=== PATIENT | male | born 1955 | race Two or more races ===

== ENCOUNTER 2024-05-08 19:00 | Emergency (ER) | payer MEDICARE, MEDICAID, SELFPAY ==
[2024-05-08] VITALS (13 sets, daily range): BP systolic 192–215; BP diastolic 85–120; PULSE 77–107; RESP 8–18; TEMP 36.9; O2SAT 95–100; BMI 28.5
--- NOTE | 2024-05-08 19:22 | EDNOTE_ITS ---
ED General RME/HPI General Chief complaint: General Adult/Misc Complain Stated complaint: fistula/shunt bleeding Time Seen by Provider: 05/08/24 19:18 Arrival date/time: 05/08/24 19:00 CC: Bleeding from right upper arm dialysis shunt HPI patient was in his shower and knocked the scab off causing immediate bleeding. EMS applied compression dressing which remains in place, there is no active oozing or bleeding at this time there are some bloody stains on the dressing. Patient denies lightheadedness or dizziness. 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 Related Data Home Medications ?Medication ?Instructions ?Recorded ?Confirmed DORZOLAMIDE/TIMOLOL (COSOPT OP TUYET) 1 drp Both eyes BID ##0 03/13/15 08/07/20 brimonidine 0.15 % eye drops 1 drp Both eyes BID #10 mL 03/13/15 08/07/20 (Alphagan P) zolpidem 10 mg tablet (Ambien) 10 mg PO HS #0 tabs 03/13/15 08/07/20 insulin NPH-regular human 100 25 - 30 unit subcut BID 08/07/20 08/07/20 unit/mL (70-30) subcutaneous cartridge latanoprost 0.005 % eye drops 1 drp ophthalmic (eye) QDAY 08/07/20 08/07/20 simvastatin 20 mg tablet 20 mg PO QDAY 08/07/20 08/07/20 sucroferric oxyhydroxide 500 mg 500 mg TID 08/07/20 08/07/20 chewable tablet (Velphoro) vitamin B complex-vitamin C-folic 1 tab PO QDAY 08/07/20 08/07/20 acid 0.8 mg tablet (Kiley-Erlinda) Allergies Allergy/AdvReac Type Severity Reaction Status Date / Time cephalexin [From Keflex] Allergy Severe Rash Verified 03/25/22 14:37 Penicillins Allergy Severe ITCHY Verified 03/25/22 14:37 Review of Systems Review of Systems Narrative Review of Systems: GEN: No fever, no chills, no weight loss EYES: No discharge, no visual changes, no pain HEENT: No ear pain, no congestion, no sore throat PULM: No shortness of breath, no cough, no congestion CV: No chest pain, no dyspnea on exertion, no palpitations GI: No nausea, no vomiting, no diarrhea, no pain, no constipation : No frequency, no urgency, no dysuria MUSC/SKEL: No joint pain, no back pain SKIN: No rash PSYCH: No hallucinations, no depression HEME/LYMPH: No easy bleeding or bruising tendencies NEURO: No weakness, no headache Past Medical History Past Medical History CARDIAC: Positive Cardiac Disorders, Hypercholesterolemia and Hypertension; Negative Congestive Heart Failure RESPIRATORY: Negative Chronic Obstructive Pulmonary Disease (COPD) GENITOURINARY: Positive Renal Disease and Dialysis ENT: Positive Blind (legally blind) ENDOCRINE: Positive Diabetes Mellitus Type 2; Negative Diabetes Mellitus Type 1 HEMATOLOGIC: Positive Anemia OTHER HISTORY: Negative Blood Transfusions Surgical History SURGICAL: Positive Cardiac Surgery, Pacemaker and Amputation (right bka) Social History SMOKING STATUS: Never smoker SUBSTANCE USE: does not use ED Exam Narrative Physical exam: [General: Obese not in any acute distress Head normocephalic HEENT: Within acceptable limits Neck is supple nontender Chest equal chest rise nontender to palpation Respiratory: Clear to auscultation no wheezes crackles or rubs CV: Rate rhythm is regular no murmurs rubs or clicks Abdomen is distended secondary to body habitus soft nontender no masses positive bowel sounds all 4 quadrants Back: No CVA tenderness no spinous process tenderness from cervical spine thoracic and lumbar spine Skin: Pressure dressing on the right upper extremity at the dialysis shunt site unable to assess the thrill. Cap refill in the digits of that extremity are less than 2 seconds neurosensory intact otherwise skin is intact no petechiae rash induration ulceration or crepitus Extremities: Moving all extremity against resistance cap refill less than 2 seconds neurosensory intact Neuro: Awake alert oriented x3 Glascow coma 15 no focal deficits] Course Quality Measures none Orders Category Date Time Status Saline [Insert IV] NOW Care 05/08/24 22:43 Completed CBC Stat Lab 05/08/24 19:46 Completed PT [Prothrombin Time with INR] Stat Lab 05/08/24 19:46 Completed PTT [Partial Thromboplastin Time] Stat Lab 05/08/24 19:46 Completed Labetalol IV [Trandate IV] Med 05/08/24 22:43 Discontinued 10 mg IVP X1 ONE Labetalol IV [Trandate IV] Med 05/09/24 02:00 Discontinued 10 mg IVP X1 ONE Labetalol IV [Trandate IV] Med 05/09/24 16:55 Discontinued 20 mg IVP X1 ONE Tranexamic Acid 1,000 mg Ivpb [Tranexamic Acid Ivpb] Med 05/08/24 22:19 Discontinued 1,000 mg in 100 ml IV [id number] Tranexamic Acid Inj Med 05/08/24 22:29 Discontinued 1,000 mg .ROUTE .STK-MED ONE Tranexamic Acid Inj Med 05/08/24 22:39 Discontinued 1,000 mg TOP X1 ONE Late Tray Request Routine Oth 05/09/24 14:27 Active Vital Signs Vital signs: Vital Signs Temperature 98.4 F 05/08/24 19:40 Pulse Rate 77 05/08/24 19:40 Respiratory Rate 18 05/08/24 19:40 Blood Pressure 204/104 H 05/08/24 19:40 Pulse Oximetry (%) 100 05/08/24 19:40 Oxygen Delivery Method Room Air 05/08/24 19:[address] [facility] Patient data External records reviewed:: [facility] previous records and EMS form Clinical information provided by:: patient and EMS Social determinants that could affect healthcare access:: none Patient has the following chronic illnesses:: ESRD on dialysis Monday How is presenting disease/condition affected by chronic disease/condition?: u neffected by Evaluation data The following diagnostics were reviewed and interpreted by me:: lab results Lab and/or radiology exams considered but not ordered:: CBC shows no leukocytosis, stable anemia no thrombocytopenia Coags within acceptable limits. Interpretation Summary: Site was reassessed at 2100, again there was leaking from the yesterday's dialysis catheter site. Pressure dressing reapplied. Medications Medications considered but not ordered:: None Medication administrations:: Medication Administration History Discontinued Medications Tranexamic Acid (Tranexamic Acid Ivpb) 1,000 mg in 100 mls @ 200 mls/hr IV [id number] PRN PRN Reason: BLEEDING Labetalol HCl (Labetalol Inj 5 Mg/Ml Vial 20 Ml) 10 mg IVP X1 ONE Stop: 05/08/24 22:44 Last Admin: 05/08/24 22:54 Dose: 10 mg Documented By: Labetalol HCl (Labetalol Inj 5 Mg/Ml Vial 20 Ml) 10 mg IVP X1 ONE Stop: 05/09/24 02:01 Last Admin: 05/09/24 02:15 Dose: 10 mg Documented By: NELLIE Labetalol HCl (Labetalol Inj 5 Mg/Ml Vial 20 Ml) 20 mg IVP X1 ONE Stop: 05/09/24 16:56 Last Admin: 05/09/24 17:01 Dose: 20 mg Documented By: JELLY Tranexamic Acid (Tranexamic Acid Inj 1,000 Mg/10 Ml Vial) Confirm Administered Dose 1,000 mg .ROUTE .STK-MED ONE Stop: 05/08/24 22:30 Last Admin: 05/08/24 22:51 Dose: Not Given Documented By: Non-Admin Reason: Duplicate Medication on eMAR Tranexamic Acid (Tranexamic Acid Inj 1,000 Mg/10 Ml Vial) 1,000 mg TOP X1 ONE Stop: 05/08/24 22:40 Last Admin: 05/09/24 01:21 Dose: 1,000 mg Documented By: NELLIE Comments: BENOIT ALLEN RN None Consultations Consultation(s) initiated? (list below): No Diagnosis Differential Diagnosis ED Complaint MDM: Dialysis shunt bleed, anemia, electrolyte imbalances Most likely diagnosis given after review of the tests above:: Dialysis shunt bleeding Admission Indicated Admission indicated?: not indicated Explain why admission is indicated or not indicated:: Transfer Admission Request Was there a request for admission?: No Disposition Plan Disposition Plan: Transfer Medical Decision Making Differential Diagnosis Differential Diagnosis: Dialysis shunt bleed, anemia, electrolyte imbalances Lab Data 05/08/24 19:46 Labs: Lab Results 05/08/24 Range/Units 19:46 WBC 6.8 (3.8-10.6) Thou/mm3 RBC 4.84 (4.50-5.90) Miln/mm3 Hgb 13.1 L (13.5-16.0) g/dL Hct 37.2 L (41.0-53.0) % MCV 77 L (80-100) fL MCH 27.1 (25.0-35.0) pg MCHC 35.2 (31.0-37.0) g/dl RDW Std Deviation 49.1 H (35.1-43.9) fL Plt Count 218 (140-440) Thou/mm3 Neut % (Auto) 65 (37-80) % Lymph % (Auto) 16 (10-50) % [place] % (Auto) 12 (0-12) % Eos % (Auto) 6 (0-10) % Baso % (Auto) 1 (0-2.5) % Neut # (Auto) 4.5 (1.8-7.7) Thou/mm3 Lymph # (Auto) 1.1 (1.0-4.8) Thou/mm3 [place] # (Auto) 0.8 (0.0-0.8) Thou/mm3 Eos # (Auto) 0.4 (0.0-0.5) Thou/mm3 Baso # (Auto) 0.1 (0.0-0.2) Thou/mm3 Immature Gran # (Auto) 0.01 H (0.00-0.00) Thou/mm3 Absolute Nucleated RBC 0.00 (0.00-0.00) Thou/mm3 Immature Gran % 0 (0-0) % Nucleated RBC % 0 (0) /100 WBC PT 11.0 (9.0-12.2) Seconds INR 1.0 (0.9-1.3) APTT 23.0 (22.0-36.0) Seconds Discharge Plan Plan Patient Disposition: [facility] Pt Being Transferred to: [facility] Service Needed for Transfer: Vascular Surgery Patient condition on transfer: Stable and Benefits outweigh risks Prescriptions/Referrals Prescriptions/Med Rec: No Action zolpidem [Ambien] 10 MG tablet 10 mg PO HS Qty: 0 DORZOLAMIDE/TIMOLOL (COSOPT OP TUYET) 150 DROP/BTL drops 1 drp Both eyes BID Qty: 0 brimonidine [Alphagan P] 10 ML drops 1 drp Both eyes BID Qty: 10 Novolin 70/30 U-100 Insulin 100 unit/mL (70-30) Cartridge 25 - 30 unit SUBCUT BID latanoprost 0.005 % Drops 1 drp OPHTHALMIC (EYE) QDAY simvastatin 20 mg Tablet 20 mg PO QDAY Kiley-Erlinda 0.8 mg Tablet 1 tab PO QDAY Velphoro 500 mg Tablet,Chewable 500 mg TID Referrals: Isidra Torrez FNP [Primary Care Provider] - In 1 week Problem List Clinical Impression: Hemorrhage of arteriovenous fistula, ESRD (end stage renal disease), HTN (hypertension) Patient/Caregiver Discharge Instructions Print Language: Panamanian Stand Alone Forms: [facility]ina Award Info., Patient Portal Info Letter
[2024-05-08 20:01] LABS: Basophils # (Auto) 0.1 Thou/mm3 (0.0-0.2); Basophils % (Auto) 1 % (0-2.5); Eosinophils # (Auto) 0.4 Thou/mm3 (0.0-0.5); Eosinophils % (Auto) 6 % (0-10); Hematocrit 37.2 % (41.0-53.0); Hemoglobin 13.1 g/dL (13.5-16.0); Immature Granulocytes % (Auto) 0 % (0-0); Immature Granulocytes Auto 0.01 Thou/mm3 (0.00-0.00); Lymphocytes # (Auto) 1.1 Thou/mm3 (1.0-4.8); Lymphocytes % (Auto) 16 % (10-50); Mean Corpuscular HGB Conc 35.2 g/dl (31.0-37.0); Mean Corpuscular Hemoglobin 27.1 pg (25.0-35.0); Mean Corpuscular Volume 77 fL (80-100); Monocytes # (Auto) 0.8 Thou/mm3 (0.0-0.8); Monocytes % (Auto) 12 % (0-12); Neutrophils # (Auto) 4.5 Thou/mm3 (1.8-7.7); Neutrophils % (Auto) 65 % (37-80); Nucleated Red Blood Cell % 0 /100 WBC (0); Platelet Count 218 Thou/mm3 (140-440); RDW Standard Deviation 49.1 fL (35.1-43.9); Red Blood Count 4.84 Miln/mm3 (4.50-5.90); White Blood Count 6.8 Thou/mm3 (3.8-10.6)
[2024-05-08] MEDS: LABETALOL INJ 5 MG/ML VIAL 20 ML 10 MG IVP (22:54)
--- NOTE | 2024-05-08 23:02 | EDNOTE_ITS ---
Emergency Room Addendum Addendum Narrative: 2300: Care assumed from Jose Sexton NP. Past medical, surgical, social and family history reviewed. Vitals and home medications reviewed. Results and treatment plan discussed. I will assume the care of the patient at this time and will follow the patient, pending re-evaluation. Please refer to the emergency department record for history and examination from initial visit. Daughter states the patient gets his vascular access revised by Dr. Wu ([phone]) in [place] every 2 weeks. She states the patient was advised to start peritoneal dialysis the next time the patient had an episode of bleeding from his AV fistula site. He was last seen by Dr. Wu 2 weeks ago in his private office. Patient states his scab over his fistula came off while he was in the shower tonight and has been bleeding since. Patient denies any chest pain, dizziness, fevers or other complaints. 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 Mendoza and normally has dialysis M//, but had it on 05/07/24. On my initial examination, the area of the AV fistula site is bounding. There is no bright red blood on the gauze. Initial blood pressure was 220 systolically and went down to 170 after receiving labetolol. As of 109, patient is still bleeding to his AV fistula with an increased thrill. When I tried to remove the dressing, blood squirted to the door. Site is re-wrapped and bleeding is controlled. This is the 3rd time the dressing was changed tonight without any improvement. 0128: Spoke with Dr. Smith, vascular on-call from Dr. Wu's office, who states the patient needs to go to the facility where he usually goes to for his procedures. Daughter states Dr. Wu works out of [facility] and [facility]. 0157: Spoke with [facility]'s transfer center, who states Dr. Smith is on-call for vascular surgeon and they will present the case to him. Daughter is agreeable to go to [facility] if able. 0208: Spoke with Dr. Smith from vascular surgery at [facility]. Accepts the patient for transfer and states to send the patient to [facility]. Informed that [facility] does not have a bed available at this time and declined the patient for transfer. Currently pending callback from [facility]. 0533: Spoke with Dr. Oviedo, hospitalist at [facility], who accepts the patient for transfer. Critical Care Time: 45 minutes The high probability of sudden, clinically significant deterioration in the patient?s condition required the highest level of my preparedness to intervene urgently. The services I provided to this patient were to treat and/or prevent clinically significant deterioration. Services included the following: chart data review, reviewing nursing notes and/or old charts, documentation time, income tax consultant collaboration regarding findings and treatment options, medication orders and management, direct patient care, vital sign assessments and ordering, interpreting and reviewing diagnostic studies and lab tests. Aggregate critical care time includes only time during which I was engaged in work directly related to the patient?s care, as described above, whether at bedside or elsewhere in the Emergency Department. It did not include time spent performing other reported procedures or the services of residents, students, nurses or physician assistants.
[2024-05-09] VITALS (84 sets, daily range): BP systolic 146–226; BP diastolic 66–117; PULSE 70–86; RESP 0–22; TEMP 36.7–36.9; O2SAT 91–99
[2024-05-09] MEDS: TRANEXAMIC ACID INJ 1,000 MG/10 ML VIAL 1000 MG TOP (01:21)
[2024-05-09] MEDS: LABETALOL INJ 5 MG/ML VIAL 20 ML 10 MG IVP (02:15)
--- NOTE | 2024-05-09 02:54 | PC.NURSE ---
TRANSFER CENTER CALLED FOR REPORT ON PATIENT IN ORDER TO GET PLACEMENT.
--- NOTE | 2024-05-09 03:26 | PC.NURSE ---
SAYRA FROM THE [facility] CALLED AND THEY ARE DECLINING THE PT AT THIS TIME DUE TO CAPACITY.
--- NOTE | 2024-05-09 05:50 | PC.NURSE ---
0152 [facility] COMTACTED PKT SENT. DR LESTER WANTS PT TO GO TO [facility] SO PT DECLINED AT [facility]. 0239 [facility] CONTACTED PT PKT SENT. [facility] DECLINED DUE TO CAPACITY. 0500 [facility] CALLED ONCE AGAIN. 0562 [facility] ACCEPT[facility] PT. DR GRACE. WE ARE NOW AWAITING BED ASSIGNMENT.
--- NOTE | 2024-05-09 08:21 | PC.CM ---
Addendum entered by Aleksandra Arroyo RN 05/09/24 16:43: network control operators supervisor time set for 1810. Ambulance will come sooner if they have a unit available. I updated Guilherme and Kimberlee in the ED. Addendum entered by Aleksandra Arroyo RN 05/09/24 15:14: I received a call from Chuck at [facility] and she states patient has been accepted to bed 3125 at [facility]. Address [address] [place] [address]. the number to call and give report [phone]. Addendum entered by Aleksandra Arroyo RN 05/09/24 14:23: 1350 I called [facility] to follow up on transfer. Chuck states they have been very busy and their discharges have been delayed. She states they have patient down for a med/surg bed. Chuck is aware patient is still in our ED. I spoke to the bedside nurse and I gave her an update. Nurse states patient is hungry wanted to know what was happening with the transfer. I asked nurse to speak to the doctor. If patient is stable maybe he can follow up with is established doctor in [place]. Original Note: [id number] I called [facility] and I spoke to transfer nurse Nathalia. She states patient has been accepted by Dr. Cordon and we are pending an open bed. I spoke to Lola and she states transfer form has been started but she does not see that a packet or CD was made. I will get packet together.
--- NOTE | 2024-05-09 15:09 | PC.NURSE ---
Transfer nurse informed that pt's fistula is still bleeding and pt still require transfer.
[2024-05-09] MEDS: LABETALOL INJ 5 MG/ML VIAL 20 ML 20 MG IVP (17:01)
--- NOTE | 2024-05-09 17:06 | PC.NURSE ---
Received report from Meghan RYAN and assumed care of patient.
--- NOTE | 2024-05-09 19:20 | PC.NURSE ---
REPORT GIVEN TO SOFI- BUSINESS LIBRARIAN. PATIENT TO BE TRANSFERRED TO [facility] IN [place]. NO DISTRESS NOTED AT TRANSFER.
== END 2024-05-09 19:10 | disposition short-term general hospital (02) ==
PROVIDERS: Registered Nurse General Practice; Emergency Provider Emergency Medicine; PCP Nurse Practitioner Family
DX: T82.838A Hemorrhage due to vascular prosthetic devices, implants and grafts, initial encounter (principal); I12.0 Hypertensive chronic kidney disease with stage 5 chronic kidney disease or end stage renal disease; E11.22 Type 2 diabetes mellitus with diabetic chronic kidney disease; N18.6 End stage renal disease; Z79.4 Long term (current) use of insulin; Y84.8 Other medical procedures as the cause of abnormal reaction of the patient, or of later complication, without mention of misadventure at the time of the procedure
CPT/HCPCS: 36415; 85025; 85610; 85730; 96374; 96376; 99291; J3490; J1920

== ENCOUNTER 2024-07-07 01:11 | Emergency (ER) | payer MEDICARE, MEDICAID, SELFPAY ==
[2024-07-07] VITALS (41 sets, daily range): BP systolic 124–166; BP diastolic 62–100; PULSE 74–105; RESP 16–88; TEMP 36.3–37.7; O2SAT 74–100; BMI 28.3
--- NOTE | 2024-07-07 01:14 | EKG_ITS ---
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
--- NOTE | 2024-07-07 01:50 | XR_ITS ---
Examination: AP chest single view Technique one AP portable upright chest single view Exam date and time: July 07, 2024 0204 hrs. Indications: Chest pain today. Findings: Early heart failure Mild enlargement cardiac contour Prominent vascular congestion Early perihilar edema Cardiac leads satisfactory position Impression: Early heart failure
[2024-07-07 02:31] LABS: Basophils # (Auto) 0.1 Thou/mm3 (0.0-0.2); Basophils % (Auto) 1 % (0-2.5); Eosinophils # (Auto) 0.2 Thou/mm3 (0.0-0.5); Eosinophils % (Auto) 1 % (0-10); Hematocrit 24.1 % (41.0-53.0); Immature Granulocytes % (Auto) 1 % (0-0); Immature Granulocytes Auto 0.13 Thou/mm3 (0.00-0.00); Lymphocytes # (Auto) 0.9 Thou/mm3 (1.0-4.8); Lymphocytes % (Auto) 6 % (10-50); Mean Corpuscular Hemoglobin 26.1 pg (25.0-35.0); Mean Corpuscular Volume 77 fL (80-100); Monocytes % (Auto) 7 % (0-12); Neutrophils # (Auto) 12.9 Thou/mm3 (1.8-7.7); Neutrophils % (Auto) 85 % (37-80); Nucleated Red Blood Cell # 0.04 Thou/mm3 (0.00-0.00); Nucleated Red Blood Cell % 0 /100 WBC (0); Platelet Count 483 Thou/mm3 (140-440); RDW Standard Deviation 53.5 fL (35.1-43.9); Red Blood Count 3.14 Miln/mm3 (4.50-5.90); White Blood Count 15.3 Thou/mm3 (3.8-10.6)
[2024-07-07 02:34] LABS: Hemoglobin 8.2 g/dL (13.5-16.0)
[2024-07-07 03:17] LABS: Alanine Aminotransferase 13 U/L (10-49); Albumin/Globulin Ratio 1.1 (1.2-2.2); Alkaline Phosphatase 214 U/L (46-116); Anion Gap 12 (7-16); Aspartate Amino Transferase 17 U/L (0-34); B-Type Natriuretic Peptide 733 pg/mL (0-100); BUN/Creatinine Ratio 8 Ratio (12-20); Bilirubin,Total 0.2 mg/dL (0.3-1.2); Blood Urea Nitrogen 63 mg/dL (9-23); Calcium 8.7 mg/dL (8.3-10.6); Calcium (Corrected) 8.7 mg/dL (8.5-10.1); Carbon Dioxide 28.4 mMol/L (20.0-31.0); Chloride 94 mMol/L (98-107); Creatinine (Component) 7.6 mg/dL (0.6-1.3); Estimated Creatinine Clearance 9.7 mL/min (>60); Globulin 3.5 gm/dL (2.3-3.5); Glucose 182 mg/dL (74-106); Lipase 26 U/L (12-53); Magnesium 2.2 mg/dL (1.6-2.6); Osmolality,Calculated 291 (275-295); Potassium 4.3 mMol/L (3.4-5.1); Sodium 134 mMol/L (136-145); Total Protein 7.5 gm/dL (5.7-8.2); Troponin I 0.044 ng/mL (0.0-0.045); eGFR 7 See Note
--- NOTE | 2024-07-07 03:23 | XR_ITS ---
Examination: CT chest with intravenous contrast 2-D sagittal and coronal reconstructions Exam date and time: July 07, 2024 at 0446 hrs. Indications: Chest pain radiating to left arm, a graft surgery one month ago just cellulitis redness swelling and pain beginning 3 days ago CTDI:vol (mGy) 29.9 DLP: (mGycm) 1098 Technique: Multiple axial sections of the thorax have been obtained. Sections have been obtained, 3 mm slice thickness. Mediastinal and lung density settings have been obtained. Intravenous contrast administered, 60 cc Isovue-370. 2-D sagittal, coronal images obtained. Low dose protocols were performed. One or more of the following dose reduction techniques were used; automated exposure control, adjustment of the mA and/or KV according to patient size, use of iterative reconstruction technique. Findings: Thick-walled abscess collection in the soft tissue right chest, at least 6 x 7 cm with reactive right axillary lymph nodes Thoracic aortic calcification no aneurysmal dilatation No pulmonary artery emboli on this non-CTA study Enlarged cardiac contour prominent vascular congestion with pulmonary edema and small bilateral pleural effusions No visualized liver or splenic lesion No pancreatic mass No gallstones Atrophic kidneys Impression: Thick-walled soft tissue abscess collection in the right chest at the 6 x 7 cm Heart failure pattern
--- NOTE | 2024-07-07 03:29 | PD.EDCHEST ---
ED Chest Pain RME/HPI General Chief Complaint: Chest Pain Stated Complaint: CHEST PAIN AND LEFT ARM PAIN Time Seen by Provider: 07/07/24 01:35 RME / HPI RME / HPI narrative: DR. SUKHDEV PIPER ED EVALUATION: 68-year-old male with history of DM2, CAD, hypertension, end-stage renal disease on dialysis (M, W, F) who presents to the emergency department with family with chest pain. Apparently about a month ago the patient's right upper extremity dialysis fistula became thrombosed. There was a surgeon at [place] [facility] who did some kind of surgery involving an incision in the right chest. The daughter states this was an AV graft of some kind. Apparently there was a post surgical superficial infection there but on subsequent follow-up appointments the surgeon said he was just going to follow it or watch it. Patient developed generalized chest pain with left upper extremity tingling about 7 hours ago or so. Patient with cardiac history. He denies diaphoresis, nausea, vomiting, dyspnea. Related Data Home Medications ?Medication ?Instructions ?Recorded ?Confirmed DORZOLAMIDE/TIMOLOL (COSOPT OP TUYET) 1 drp Both eyes BID ##0 03/13/15 08/07/20 brimonidine 0.15 % eye drops 1 drp Both eyes BID #10 mL 03/13/15 08/07/20 (Alphagan P) zolpidem 10 mg tablet (Ambien) 10 mg PO HS #0 tabs 03/13/15 08/07/20 insulin NPH-regular human 100 25 - 30 unit subcut BID 08/07/20 08/07/20 unit/mL (70-30) subcutaneous cartridge latanoprost 0.005 % eye drops 1 drp ophthalmic (eye) QDAY 08/07/20 08/07/20 simvastatin 20 mg tablet 20 mg PO QDAY 08/07/20 08/07/20 sucroferric oxyhydroxide 500 mg 500 mg TID 08/07/20 08/07/20 chewable tablet (Velphoro) vitamin B complex-vitamin C-folic 1 tab PO QDAY 08/07/20 08/07/20 acid 0.8 mg tablet (Kiley-Erlinda) Allergies Allergy/AdvReac Type Severity Reaction Status Date / Time cephalexin (From Keflex) Allergy Severe Rash Verified 03/25/22 14:37 Penicillins Allergy Severe ITCHY Verified 03/25/22 14:37 Review of Systems Review of Systems Systems Reviewed: All systems reviewed, normal except as documented Narrative Review of Systems: GEN: No fever, no chills, no weight loss EYES: No discharge, no visual changes, no pain HEENT: No ear pain, no congestion, no sore throat PULM: No shortness of breath, no cough, no congestion CV: + chest pain, no dyspnea on exertion, no palpitations GI: No nausea, no vomiting, no diarrhea, no pain, no constipation : No frequency, no urgency and no dysuria MUSC/SKEL: No joint pain, no back pain SKIN: No rash PSYCH: No hallucinations, no depression HEME/LYMPH: No easy bleeding or bruising tendencies NEURO: No weakness, no headache Past Medical History Past Medical History CARDIAC: Positive Cardiac Disorders (Pacemaker on left side), Hypercholesterolemia and Hypertension; Negative Congestive Heart Failure RESPIRATORY: Negative Chronic Obstructive Pulmonary Disease (COPD) or Asthma GENITOURINARY: Positive Renal Disease and Dialysis ENT: Positive Blind ENDOCRINE: Positive Diabetes Mellitus Type 2; Negative Diabetes Mellitus Type 1 HEMATOLOGIC: Positive Anemia; Negative Sickle Cell Disease OTHER HISTORY: Negative Blood Transfusions Surgical History SURGICAL: Positive Cardiac Surgery, Pacemaker and Amputation Social History SMOKING STATUS: Never smoker SUBSTANCE USE: does not use ALCOHOL: Never ED Exam Narrative Physical exam: GENERAL APPEARANCE:? alert and oriented, well-developed, well-nourished HEENT: Normocephalic, atraumatic; pupils equal, round, reactive to light; EOMI; mucous membranes pink, moist; oropharynx clear NECK: Supple CHEST: There is a right upper chest, 10 cm enlarged, erythematous, hot to touch and tender area with overlying well-healed surgical incision. There is some fluctuance there. Patient has erythema to the pectoral muscle and right chest generally. This is tender to palpation and hot to touch. LUNGS: CTABL; no wheezes, no rales, no rhonchi HEART: Regular rate, regular rhythm; normal S1, S2; no murmurs ABDOMEN: non distended; normal BS;? soft, no tenderness, no guarding, no rebound; no masses, no organomegaly, no hernia?? : Patient has a left groin temporary dialysis catheter. BACK:? no CVA tenderness EXTREMITIES:? Patient has a hard right upper extremity AV graft with no thrill or pulse. Patient is able to move all 4 extremities well, with full ROM and good CSM. NEUROLOGIC: awake; alert and oriented x4; cranial nerves II-XII grossly intact; no focal sensory or motor deficits PSYCHIATRIC:? appropriate mood and affect SKIN: warm, dry, normal color; no rashes Course Course Course Narrative: 0600: Patient was signed out to Dr. Potter. Past medical, surgical, social and family history reviewed. Vitals and home medications reviewed. Results and treatment plan discussed. They will assume the care of the patient at this time and will follow the patient. Quality Measures none Orders Category Date Time Status CT Screening NOW Care 07/07/24 03:23 Active Hardware Trainer STAT Care 07/07/24 01:50 Active Continuous Pulse Oximetry ONCE Care 07/07/24 01:50 Completed Dialysis [Hemodialysis] Urgent Care 07/07/24 15:59 Active EKG (ED ONLY) *Do not use* NOW Care 07/07/24 01:14 Completed Insert IV STAT Care 07/07/24 01:50 Active NPO STAT Care 07/07/24 03:18 Active Strict Intake and Output Routine Care 07/07/24 03:18 Ordered Referral - [employer] Fabricator Trimmer Stat Cons 07/07/24 07:[address] chest w con Stat Exams 07/07/24 03:[address] chest wo con Stat Exams 07/07/24 14:43 Completed EKG (ED Only) Stat Exams 07/07/24 01:14 Ordered XR chest 1V Stat Exams 07/07/24 10:57 Completed XR chest 1V portable Stat Exams 07/07/24 01:50 Completed B-Type Natriuretic Peptide Stat Lab 07/07/24 02:04 Completed B-Type Natriuretic Peptide Stat Lab 07/07/24 03:34 Completed Blood Culture (Lab) Stat Lab 07/07/24 00:34 Received CBC Stat Lab 07/07/24 02:04 Completed CBC Stat Lab 07/07/24 15:15 Completed CMP [Comprehensive Metabolic Panel] Stat Lab 07/07/24 15:15 Completed Comprehensive Metabolic Panel Stat Lab 07/07/24 02:04 Completed Hepatitis Acute Panel Urgent Lab 07/07/24 15:18 Completed Hepatitis B Surface Ab Urgent Lab 07/07/24 15:18 Completed LDH (Lactate Dehydrogenase) Stat Lab 07/07/24 03:34 Completed Lactate (Lactic Acid) Stat Lab 07/07/24 03:34 Completed Lipase Stat Lab 07/07/24 02:04 Completed Magnesium Stat Lab 07/07/24 02:04 Completed Partial Thromboplastin Time Stat Lab 07/07/24 03:34 Completed Phosphorous Stat Lab 07/07/24 03:34 Completed Procalcitonin Stat Lab 07/07/24 03:34 Completed Prothrombin Time with INR Stat Lab 07/07/24 03:34 Completed Troponin I Stat Lab 07/07/24 02:04 Completed Troponin I Stat Lab 07/07/24 04:53 Completed Urinalysis Stat Lab 07/07/24 03:18 Ordered Urine Culture Stat Lab 07/07/24 03:18 Ordered Wound Culture and Gram Stain Stat Lab 07/07/24 15:51 Ordered ALBUTEROL RT 0.5ml [Proventil Rt 0.5ml] Med 07/07/24 10:45 Discontinued 10 mg INH X1 ONE ALBUTEROL RT 0.5ml [Proventil Rt 0.5ml] Med 07/07/24 14:24 Discontinued 2.5 mg INH X1 ONE Albumin Human 25% Ivpb [Albuminar-25 Ivpb] Med 07/07/24 15:59 Active 25 gm in 100 ml IV PRN Aztreonam Inj [Azactam Inj] 1,000 mg Med 07/07/24 03:28 Discontinued SODIUM CHLORIDE 0.9% (Popper) [NS 0.9% (Popper)] 50 ml IV X1 Clindamycin/Ns 600 mg Ivpb [Cleocin/Ns Ivpb] Med 07/07/24 03:28 Discontinued 600 mg in 50 ml IV X1 Heparin* 1000 UNITS/ML- 10 ML [Heparin 1000 UNITS/ML- Med 07/07/24 16:41 Active 10 ML] 6,300 unit INDWELLCAT PRN PRN Ipratropium [place] Rt Tuyet [Atrovent Rt Tuyet] Med 07/07/24 10:45 Discontinued 1 mg INH X1 ONE MethylPREDNISolone.* [SoluMEDROL Inj] Med 07/07/24 10:45 Discontinued 125 mg IVP X1 ONE Sodium Chloride Rt Tuyet 0.9% [NS Rt Tuyet 0.9%] Med 07/07/24 10:45 Active 3 ml INH PRN PRN Sodium Chloride Rt Tuyet 0.9% [NS Rt Tuyet 0.9%] Med 07/07/24 14:24 Active 3 ml INH PRN PRN Vital Signs Vital signs: Vital Signs Temperature 99.0 F 07/07/24 01:51 Pulse Rate 86 07/07/24 01:51 Respiratory Rate 20 07/07/24 01:51 Blood Pressure 137/70 H 07/07/24 01:51 Pulse Oximetry (%) 89 L 07/07/24 01:51 Oxygen Delivery Method Room Air 07/07/24 01:51 Chest Pain MDM Narrative [facility] Narrative:: 03:29 patient's chief complaint is chest pain. A month ago the patient's right upper extremity dialysis fistula became thrombosed. There was a surgeon at [place] [facility] who did some kind of surgery involving an incision in the right chest. The daughter states this was an AV graft of some kind. Apparently there was a post surgical superficial infection there but on subsequent follow-up appointments the surgeon said he was just cannot follow it or watch it. I have ordered a chest pain as well as a sepsis workup. This is obviously infection. Patient is allergic to penicillin and is currently taking ciprofloxacin prescribed by his doctor. Apparently they called the doc and told him that he had chills and sweats then the doctor just prescribed ciprofloxacin. Patient's QTc is 424 on chest x-ray here in the emergency department. I have ordered aztreonam and clindamycin. This is obviously infection. I have ordered a CT of the chest as well. Will need to get some labs back and then the plan is to call [place] [facility] and speak with The surgeon covering that surgeon about transferring him. care of the pt turned over to Dr Claudio at 6am pending CT Patient data External records reviewed:: [facility] previous records (Reviewed last ED visit dated 03/25/22, discharged with the following: Hemorrhage) Clinical information provided by:: patient and family Social determinants that could affect healthcare access:: none Patient has the following chronic illnesses:: DM2, CAD, hypertension, end-stage renal disease on dialysis (M, W, F). How is presenting disease/condition affected by chronic disease/condition?: exacerbated by Evaluation data The following diagnostics were reviewed and interpreted by me:: lab results and radiology exam(s) Lab and/or radiology exams considered but not ordered:: none Interpretation Summary: See above under MDM narrative. RADIOLOGY Procedure(s): XR chest 1V portable Accession Number(s): [id number] cc: John Acevedo MD; Naga Varma MD; Yoni Godwin MD~ Examination: AP chest single view Technique one AP portable upright chest single view Exam date and time: July 07, 2024 0204 hrs. Indications: Chest pain today. Findings: Early heart failure Mild enlargement cardiac contour Prominent vascular congestion Early perihilar edema Cardiac leads satisfactory position Impression: Early heart failure Dictated By: Naga Varma MD Procedure(s): CT chest w con Accession Number(s): [id number] cc: John Acevedo MD; Naga Varma MD; Yoni Godwin MD~ Examination: CT chest with intravenous contrast 2-D sagittal and coronal reconstructions Exam date and time: July 07, 2024 at 0446 hrs. Indications: Chest pain radiating to left arm, a graft surgery one month ago just cellulitis redness swelling and pain beginning 3 days ago CTDI:vol (mGy) 29.9 DLP: (mGycm) 1098 Technique: Multiple axial sections of the thorax have been obtained. Sections have been obtained, 3 mm slice thickness. Mediastinal and lung density settings have been obtained. Intravenous contrast administered, 60 cc Isovue-370. 2-D sagittal, coronal images obtained. Low dose protocols were performed. One or more of the following dose reduction techniques were used; automated exposure control, adjustment of the mA and/or KV according to patient size, use of iterative reconstruction technique. Findings: Thick-walled abscess collection in the soft tissue right chest, at least 6 x 7 cm with reactive right axillary lymph nodes Thoracic aortic calcification no aneurysmal dilatation No pulmonary artery emboli on this non-CTA study Enlarged cardiac contour prominent vascular congestion with pulmonary edema and small bilateral pleural effusions No visualized liver or splenic lesion No pancreatic mass No gallstones Atrophic kidneys Impression: Thick-walled soft tissue abscess collection in the right chest at the 6 x 7 cm Heart failure pattern Dictated By: Naga Varma MD Medications / Prescriptions Medications or Prescriptions considered but not ordered:: none Medication administrations:: Medication Administration History Heparin Sodium (Porcine) (Heparin Sod Inj 1000 Unit/Ml Vial 10 Ml) 6,300 unit INDWELLCAT PRN PRN PRN Reason: DIALYSIS Stop: 07/21/24 16:40 Last Admin: 07/07/24 19:52 Dose: 6,300 unit Documented By: MM Co-signed By: ERIN Albumin Human (Albuminar-25 Ivpb) 25 gm in 100 mls @ 100 mls/min IV PRN PRN PRN Reason: DIALYSIS Sodium Chloride (Sodium Chloride Rt Tuyet 0.9% 3 Ml Nebu) 3 ml INH PRN PRN PRN Reason: SOLN Stop: 08/06/24 10:44 Last Admin: 07/07/24 10:54 Dose: 3 ml Documented By: RAMYA Comments: ADMINISTERED BY RT Sodium Chloride (Sodium Chloride Rt Tuyet 0.9% 3 Ml Nebu) 3 ml INH PRN PRN PRN Reason: SOLN Stop: 08/06/24 14:23 Last Admin: 07/07/24 14:38 Dose: 3 ml Documented By: ROSANNA Discontinued Medications Albuterol (Albuterol Rt 2.5 Mg/0.5 Ml Nebu) 10 mg INH X1 ONE Stop: 07/07/24 10:46 Last Admin: 07/07/24 10:54 Dose: 10 mg Documented By: TM Comments: ADMINISTERED BY RT Albuterol (Albuterol Rt 2.5 Mg/0.5 Ml Nebu) 2.5 mg INH X1 ONE Stop: 07/07/24 14:25 Last Admin: 07/07/24 14:37 Dose: 2.5 mg Documented By: ROSANNA Aztreonam 1,000 mg/ Sodium (Chloride) 50 mls @ 100 mls/hr IV X1 ONE Stop: 07/07/24 03:57 Last Infusion: 07/07/24 04:40 Dose: Infused Documented By: Admin: 07/07/24 04:08 Dose: 100 mls/hr Documented By: ERIN Clindamycin/Sodium Chloride (Cleocin/Ns Ivpb) 600 mg in 50 mls @ 100 mls/hr IV X1 ONE Stop: 07/07/24 03:57 Last Infusion: 07/07/24 04:08 Dose: Infused Documented By: Admin: 07/07/24 03:38 Dose: 100 mls/hr Documented By: ERIN Ipratropium [place] (Ipratropium Rt 0.5 Mg/ 2.5 Ml Nebu) 1 mg INH X1 ONE Stop: 07/07/24 10:46 Last Admin: 07/07/24 10:54 Dose: 1 mg Documented By: RAMYA Comments: ADMINISTERED BY RT Methylprednisolone Sodium Succinate (Methylprednisolone Sod Succ 62.5 Mg/Ml 2ml Vial) 125 mg IVP X1 ONE Stop: 07/07/24 10:46 Last Admin: 07/07/24 10:49 Dose: 125 mg Documented By: RAMYA see above Consultations Consultation(s) initiated? (list below): No Diagnosis Chest Pain Differential Diagnosis: atypical chest pain, costochondritis, chest pain and other (tenosis at the arterial inflow or venous outflow site) Most likely diagnosis given after review of the tests above:: No official diagnoses at this time, still pending diagnostic tests. Patient signout to the morning shift provider. Admission Indicated Admission indicated?: not indicated Explain why admission is indicated or not indicated:: No final disposition plan at this time, still pending diagnostic tests. Patient signout to the morning shift provider. Admission Request Was there a request for admission?: No Disposition Plan Disposition Plan: other (specify) (Patient signout to the morning shift provider.) Discharge Plan Prescriptions/Referrals Prescriptions/Med Rec: No Action zolpidem [Ambien] 10 MG tablet 10 mg PO HS Qty: 0 DORZOLAMIDE/TIMOLOL (COSOPT OP TUYET) 150 DROP/BTL drops 1 drp Both eyes BID Qty: 0 brimonidine [Alphagan P] 10 ML drops 1 drp Both eyes BID Qty: 10 Novolin 70/30 U-100 Insulin 100 unit/mL (70-30) Cartridge 25 - 30 unit SUBCUT BID latanoprost 0.005 % Drops 1 drp OPHTHALMIC (EYE) QDAY simvastatin 20 mg Tablet 20 mg PO QDAY Kiley-Erlinda 0.8 mg Tablet 1 tab PO QDAY Velphoro 500 mg Tablet,Chewable 500 mg TID Referrals: John Acevedo MD [Primary Care Provider] - In 1 week Problem List Clinical Impression: Post-operative wound abscess, Chest pain Patient/Caregiver Discharge Instructions Print Language: Indonesian
[2024-07-07] MEDS: CLINDAMYCIN/NS 600 MG IVPB 600 MG/50 ML BAG 100 MG IV (03:38)
[2024-07-07 03:40] LABS: Lactate (Lactic Acid) 0.8 mMol/L (0.4-2.0)
[2024-07-07 04:03] LABS: INR 1.2 (0.9-1.3); Partial Thromboplastin Time 26.6 Seconds (22.0-36.0); Prothrombin Time 12.7 Seconds (9.0-12.2)
[2024-07-07] MEDS: AZTREONAM IV (04:08)
[2024-07-07] MEDS: SODIUM CHLORIDE 0.9% IV (04:08)
[2024-07-07 04:13] LABS: Phosphorous 3.1 mg/dL (2.4-5.1)
[2024-07-07 04:28] LABS: B-Type Natriuretic Peptide 743 pg/mL (0-100); Procalcitonin 0.79 ng/ml (0.0-0.49)
[2024-07-07 05:32] LABS: Troponin I 0.045 ng/mL (0.0-0.045)
--- NOTE | 2024-07-07 05:55 | PRELIM_ITS ---
CT scan of the chest with intravenous contrast (axial sections with sagittal and coronal reformats) July 07, 2024 0446 hours Clinical History: post surgical cellulitis. Collection? Comparison:No prior study is available for comparison. Findings: There are ground-glass opacities and interstitial septal thickening in the lungs consistent with interstitial pulmonary edema. There are small bilateral pleural effusions. No evidence of pneumothorax.The mediastinum demonstrates no evidence of mass or lymphadenopathy. The thoracic aorta is unremarkable. There is no pericardial effusion. Coronary artery calcification is absent. Degenerative changes are identified in the spine.There is a 5.5x7 cm peripherally enhancing fluid collection with surrounding fat stranding in the right anterior chest wall, involving the right pectoralis major muscle, extending superficial and deep to it. Both kidneys are atrophic and demonstrate multiple small cysts. Impression: Interstitial pulmonary edema. Small bilateral pleural effusions 5.5x7 cm right anterior chest wall abscess, involving the right pectoralis major muscle. Other findings as described above. Report Electronically Signed By: Omega Sahni 07/07/2024 5:55:05 AM [EST]
[2024-07-07 06:29] LABS: LDH (Lactate Dehydrogenase) 191 U/L (120-246)
--- NOTE | 2024-07-07 08:49 | PC.CM ---
Addendum entered by Aleksandra Arroyo RN 07/07/24 19:03: Patient needs transfer for vascular services for abscess to chest. Patient has been followed by Dr. Wu in [place] phone [phone]. Dr. Potter spoke to Dr. Smith, who was customer solutions supervisor for Dr. Wu?s vascular group. Dr. Smith accepted patient, and he wants patient to go to ?[facility]. I called and initiated transfer with [facility], but they do not have an open bed at this time. Patient is on their wait list. ?Transfer packet with CD given to ?ED charge nurse. Addendum entered by Aleksandra Arroyo RN 07/07/24 16:36: I called and spoke to Sondra at [facility]. She states they do not have a bed at this time. Once they have a bed open up they will reach out to have our doctors speak to each other for report. I updated charge nurse Stuart. Addendum entered by Aleksandra Arroyo RN 07/07/24 13:31: I spoke to Asha at [facility]. Asha states patient is on a wait list and they will review for beds again at 1600. She states I can call back after 1600 today to follow up on bed availability. Addendum entered by Aleksandra Arroyo RN 07/07/24 12:22: I called for CD and put together transfer packet. Addendum entered by Aleksandra Arroyo RN 07/07/24 12:05: I received a call from Lola davies with [facility]. I transferred her to Dr. Potter after I gave information on patient pertaining to patient's current status. Addendum entered by Aleksandra Arroyo RN 07/07/24 11:31: Dr. Potter spoke to Dr. Smith who was customer solutions supervisor for Dr. Wu. Dr. Smith states he will accept patient and he would like patient to go to [facility]. I will initiate transfer to [facility]. Addendum entered by Aleksandra Arroyo RN 07/07/24 10:59: I spoke to Dr. Potter and he states [facility] declined due to capacity. Dr. Potter is going to reach out to patient's vascular doctor Dr. Wu [phone] to see if he can talk to him directly to discuss patient's care and management. Addendum entered by Aleksandra Arroyo RN 07/07/24 09:13: I received a call from Amber davies at [facility]. She wanted to speak to Dr. Potter so I transferred the call . Original Note: 0742 I received a referral to transfer patient for vascular for abscess of surgical site. Dr. Potter states patient has been to [facility] and his doctor is Dr. Wu phone # [phone]. I contacted [facility] transfer center and I initiated a transfer. I faxed over all information and I pushd over images.
--- NOTE | 2024-07-07 10:30 | PC.NURSE ---
O2 saturation worsening, pt sating in the 70's. wheezing and crackles noted to the lungs bilaterally. pt appears to be short of breath. provider notified, orders received and initiated.
--- NOTE | 2024-07-07 10:31 | PC.NURSE ---
RT called to bedside.
--- NOTE | 2024-07-07 10:41 | PD.EDADDENDU ---
Emergency Room Addendum Addendum Narrative: 0600: Care assumed from Dr. Godwin, the previous shift emergency physician. Past medical, surgical, social and family history reviewed. Vitals and home medications reviewed. I will assume the care of the patient at this time. Please refer to the emergency department record for history and examination from initial visit.? At 12 PM, I was called to bedside due to patient being short of breath. Patient had audible wheezing but no rales. Patient denies ever using inhalers/ nebulizers. I also asked about if he feels short of breath if he misses dialysis and he denies any problems like that. He also reported left-sided chest pain. 1520: Discussed test HPI, PMHx, lab, radiology results and/or management with Dr. Mendoza. She states that the patient easily retains fluids in between dialysis sessions. Recommends since it is the weekend to remove some fluid. 1600: I did a bedside needle aspiration of the right upper chest area mass. I extracted 7 cc of foul smeeling puss. 1645: Discussed test HPI, PMHx, lab, radiology results and/or management with Dr. hospitalist Dr. Floyd, patient accepted to [facility]. Admitting vascular doctor is Dr. Smith. 1800: Patient was signed out to Dr. Godwin. Past medical, surgical, social and family history reviewed. Vitals and home medications reviewed. Results and treatment plan discussed. They will assume the care of the patient at this time and will follow the patient, pending transfer. RADIOLOGY Procedure(s): XR chest 1V portable Accession Number(s): [id number] cc: John Acevedo MD; Naga Varma MD; Yoni Godwin MD~ Examination: AP chest single view Technique one AP portable upright chest single view Exam date and time: July 07, 2024 0204 hrs. Indications: Chest pain today. Findings: Early heart failure Mild enlargement cardiac contour Prominent vascular congestion Early perihilar edema Cardiac leads satisfactory position Impression: Early heart failure Dictated By: Naga Varma MD Procedure(s): CT chest w wally Accession Number(s): [id number] cc: John Acevedo MD; Naga Varma MD; Yoni Godwin MD~ Examination: CT chest with intravenous contrast 2-D sagittal and coronal reconstructions Exam date and time: July 07, 2024 at 0446 hrs. Indications: Chest pain radiating to left arm, a graft surgery one month ago just cellulitis redness swelling and pain beginning 3 days ago CTDI:vol (mGy) 29.9 DLP: (mGycm) 1098 Technique: Multiple axial sections of the thorax have been obtained. Sections have been obtained, 3 mm slice thickness. Mediastinal and lung density settings have been obtained. Intravenous contrast administered, 60 cc Isovue-370. 2-D sagittal, coronal images obtained. Low dose protocols were performed. One or more of the following dose reduction techniques were used; automated exposure control, adjustment of the mA and/or KV according to patient size, use of iterative reconstruction technique. Findings: Thick-walled abscess collection in the soft tissue right chest, at least 6 x 7 cm with reactive right axillary lymph nodes Thoracic aortic calcification no aneurysmal dilatation No pulmonary artery emboli on this non-CTA study Enlarged cardiac contour prominent vascular congestion with pulmonary edema and small bilateral pleural effusions No visualized liver or splenic lesion No pancreatic mass No gallstones Atrophic kidneys Impression: Thick-walled soft tissue abscess collection in the right chest at the 6 x 7 cm Heart failure pattern Dictated By: Naga Varma MD
[2024-07-07] MEDS: MethylPREDNISolone SOD SUCC 62.5 MG/ML 2ML VIAL 125 MG IVP (10:49)
[2024-07-07] MEDS: SODIUM CHLORIDE RT SOL 0.9% 3 ML NEBU INH ×2 (10:54→14:38)
[2024-07-07] MEDS: IPRATROPIUM RT 0.5 MG/ 2.5 ML NEBU 1 MG INH (10:54)
[2024-07-07] MEDS: ALBUTEROL RT 2.5 MG/0.5 ML NEBU 10 MG INH (10:54)
--- NOTE | 2024-07-07 10:57 | XR_ITS ---
Examination: AP chest single view Technique one AP portable semiupright chest single view Exam date and time: July 07, 2024 1127 hrs. Comparison July 07, 2024 0204 hrs. Indications: Chest pain today. Findings: Worsening heart failure with bilateral edema and/or pneumonia Cardiac leads satisfactory position Moderate osteopenia Impression: Interval extensive bilateral edema and likely superimposed pneumonia
[2024-07-07] MEDS: ALBUTEROL RT 2.5 MG/0.5 ML NEBU INH (14:37)
--- NOTE | 2024-07-07 14:43 | XR_ITS ---
Examination: CT chest, without intravenous contrast. Sagittal and coronal 2-D reconstructions. Exam date and time: July 07, 2024 1458 hrs. Indications: Coughing congestion with chest pain shortness of breath today CTDI:vol (mGy) 31 DLP: (mGycm) 1101 Technique: Multiple 3.0 mm axial sections of the chest to been obtained. Bone and lung density settings are obtained. Sagittal and coronal 2-D reconstructions have been obtained. Low dose protocols were performed. One or more of the following dose reduction techniques were used; automated exposure control, adjustment of the mA and/or KV according to patient size, use of iterative reconstruction technique. Findings: Heavy thoracic aortic calcification Thick-walled abscess in the right chest wall again depicted Interval extensive pneumonia throughout the lungs with vascular congestion and some element of heart failure Large bilateral pleural effusions No visualized liver or splenic lesions Hyperdense gallbladder Impression: Thick-walled abscess in the right chest wall again depicted compared with July 07, 2024 0446 hrs. Interval extensive bilateral pneumonia
[2024-07-07 15:30] LABS: Basophils # (Auto) 0.1 Thou/mm3 (0.0-0.2); Basophils % (Auto) 0 % (0-2.5); Eosinophils % (Auto) 0 % (0-10); Hematocrit 29.1 % (41.0-53.0); Hemoglobin 9.9 g/dL (13.5-16.0); Immature Granulocytes % (Auto) 1 % (0-0); Immature Granulocytes Auto 0.17 Thou/mm3 (0.00-0.00); Lymphocytes # (Auto) 0.5 Thou/mm3 (1.0-4.8); Lymphocytes % (Auto) 2 % (10-50); Mean Corpuscular Hemoglobin 26.2 pg (25.0-35.0); Mean Corpuscular Volume 77 fL (80-100); Monocytes # (Auto) 0.3 Thou/mm3 (0.0-0.8); Monocytes % (Auto) 2 % (0-12); Neutrophils # (Auto) 19.2 Thou/mm3 (1.8-7.7); Neutrophils % (Auto) 95 % (37-80); Nucleated Red Blood Cell # 0.02 Thou/mm3 (0.00-0.00); Nucleated Red Blood Cell % 0 /100 WBC (0); Platelet Count 199 Thou/mm3 (140-440); RDW Standard Deviation 54.2 fL (35.1-43.9); Red Blood Count 3.78 Miln/mm3 (4.50-5.90); White Blood Count 20.3 Thou/mm3 (3.8-10.6)
[2024-07-07 15:44] LABS: Alanine Aminotransferase 15 U/L (10-49); Albumin, Serum 4.4 gm/dL (3.4-4.8); Albumin/Globulin Ratio 1.1 (1.2-2.2); Alkaline Phosphatase 263 U/L (46-116); Anion Gap 19 (7-16); Aspartate Amino Transferase 15 U/L (0-34); BUN/Creatinine Ratio 9 Ratio (12-20); Bilirubin,Total 0.2 mg/dL (0.3-1.2); Blood Urea Nitrogen 73 mg/dL (9-23); Calcium 8.9 mg/dL (8.3-10.6); Calcium (Corrected) 8.9 mg/dL (8.5-10.1); Carbon Dioxide 21.2 mMol/L (20.0-31.0); Chloride 91 mMol/L (98-107); Creatinine (Component) 8.5 mg/dL (0.6-1.3); Estimated Creatinine Clearance 8.6 mL/min (>60); Globulin 3.9 gm/dL (2.3-3.5); Glucose 292 mg/dL (74-106); Osmolality,Calculated 295 (275-295); Potassium 5.4 mMol/L (3.4-5.1); Sodium 131 mMol/L (136-145); Total Protein 8.3 gm/dL (5.7-8.2); eGFR 6 See Note
--- NOTE | 2024-07-07 16:30 | PC.NURSE ---
PT TAKEN FOR DIALYSIS.
--- NOTE | 2024-07-07 17:48 | EDNOTE_ITS ---
Emergency Room Addendum <Jennifer Carlisle - Last Filed: 07/08/24 14:14> Addendum Narrative: 1800: Care assumed from Dr. Potter, the previous shift emergency physician. Past medical, surgical, social and family history reviewed. Vitals and home medications reviewed. I will assume the care of the patient at this time, pending transfer. Please refer to the emergency department record for history and examination from initial visit.? Physical exam by me shows patient under no acute distress at this time. Patient has returned from dialysis. 2217: I spoke with [facility] transfer center and let them know the patient is clinically stable for transfer. 2258: I spoke with [facility], who states the television reporter and the hospitalist request the patient to be observed overnight. I requested to speak with their hospitalist. 2324: I was informed by the charge nurse, who informed me that the transfer center called back, stating their hospitalist, Dr. Wall, refused to speak with me. 2328: I spoke with [facility] transfer [place]. I spoke with Dr. Smith, vascular surgeon on-call for the patient's original vascular surgeon, who wants the patient to be admitted to [facility]. He states that if the hospitalist continues to decline the patient for transfer, he will be accepted to a different [facility] if they have a bed available. Transfer center informed me they will notify their social work administrator on-call regarding the situation. 0005: I spoke with [facility] transfer [place], who states the social work administrator on-call, , agreed with their television reporter that the patient need s to be dialyzed again in the morning and is unstable to be transferred. Patient is resting comfortably, in no acute distress with stable vital signs at this time. Patient will be held in our ED until the morning when the morning hospitalist and television reporter arrive at their facility. 0600: Care signed out to Dr. Potter (emergency physician). Past medical, surgical, social and family history reviewed. Vitals and home medications reviewed. Results and treatment plan discussed. They will assume the care of the patient at this time and will follow the patient, pending transfer. <Yoni Godwin MD - Last Filed: 07/07/24 20:39> Addendum Narrative: 1800: Care assumed from Dr. Potter, the previous shift emergency physician. Past medical, surgical, social and family history reviewed. Vitals and home medications reviewed. I will assume the care of the patient at this time, pending transfer. Please refer to the emergency department record for history and examination from initial visit.? Physical exam by me shows patient under no acute distress at this time. Patient has returned from dialysis. <Juhi Mcgee - Last Filed: 07/08/24 05:15> Addendum Narrative: 1800: Care assumed from Dr. Potter, the previous shift emergency physician. Past medical, surgical, social and family history reviewed. Vitals and home medications reviewed. I will assume the care of the patient at this time, pending transfer. Please refer to the emergency department record for history and examination from initial visit.? Physical exam by me shows patient under no acute distress at this time. Patient has returned from dialysis. 2217: I spoke with [facility] transfer [place] and let them know the patient is clinically stable for transfer. 2258: I spoke with [facility] transfer [place], who states the television reporter and the hospitalist request the patient to be observed overnight. I requested to speak with their hospitalist. 2324: I was informed by the charge nurse, who informed me that the transfer center called back, stating their hospitalist, Dr. Wall, refused to speak with me. 2328: I spoke with [facility]. I spoke with Dr. Smith, vascular surgeon on-call for the patient's original vascular surgeon, who wants the patient to be admitted to [facility]. He states that if the hospitalist continues to decline the patient for transfer, he will be accepted to a different [facility] if they have a bed available. Transfer center informed me they will notify their social work administrator on-call regarding the situation. 0005: I spoke with [facility] transfer center, who states the social work administrator on-call, , agreed with their television reporter that the patient needs to be dialyzed again in the morning and is unstable to be transferred. Patient is resting comfortably, in no acute distress with stable vital signs at this time. Patient will be held in our ED until the morning when the morning hospitalist and television reporter arrive at their facility. 0600: Care signed out to Dr. Potter (emergency physician). Past medical, surgical, social and family history reviewed. Vitals and home medications reviewed. Results and treatment plan discussed. They will assume the care of the patient at this time and will follow the patient, pending transfer.
[2024-07-07] MEDS: HEPARIN SOD INJ 1000 UNIT/ML VIAL 10 ML 6300 UNIT INDWELLCAT (19:52)
[2024-07-07 21:48] LABS: Hepatitis A Antibody IgM Non Reactive (Non React); Hepatitis B Core Antibody IgM Non Reactive (Non React); Hepatitis B Surface Ab Reactive (Immune) (Immune); Hepatitis B Surface Antigen Non Reactive (Non React); Hepatitis C Antibody Non Reactive (Non React)
[2024-07-08] VITALS (44 sets, daily range): BP systolic 107–177; BP diastolic 57–103; PULSE 3–103; RESP 14–44; TEMP 36.5–37.1; O2SAT 91–100
[2024-07-08] MEDS: ONDANSETRON INJ 2 MG/ML INJ 2 ML 4 MG IV (06:06)
--- NOTE | 2024-07-08 06:36 | EDNOTE_ITS ---
Emergency Room Addendum Addendum Narrative: 0600: Care assumed from Dr. Godwin, the previous shift emergency physician. Past medical, surgical, social and family history reviewed. Vitals and home medications reviewed. I will assume the care of the patient at this time, pending transfer. Please refer to the emergency department record for history and examination from initial visit.? Nursing notes reviewed by me. Vital signs reviewed by me. [place] medical records reviewed by me. 0800: Patient taken to dialysis Patient completed his 2nd dialysis treatment, Dr. Mendoza had scheduled dialysis treatment today. Patient returned and is smiling, appears comfortable, and not short of breath. Will resume transfer.
--- NOTE | 2024-07-08 07:46 | PC.CC ---
Addendum entered by Tete Palafox RN 07/08/24 18:39: Chart reprinted to be updated and gave to the charge nurse Addendum entered by Tete Palafox RN 07/08/24 18:09: Sharon from [facility] called and got updated clinicals, she states she will check on bed status and call back Addendum entered by Tete Palafox RN 07/08/24 16:51: Called [facility] and spoke with Ellis she states that case is open but the nurses are busy with emergent cases and some one will call back when they can Addendum entered by Tete Palafox RN 07/08/24 15:41: Spoke to Gege at [facility] she states she opened the case again and they will be calling back. Addendum entered by Tete Palafox RN 07/08/24 08:19: 0750- Dr. Potter called back and stated patient needs to go to Dialysis again this morning and he will call transfer nurse when patient is back in ER. Davidson from [facility] made aware and he states they will have to close the case and it will have to be reinitiated after dialysis is done. Original Note: 1888- Spoke to Dr. Potter who states patient is now stable for transfer and patient still needs transfer for vascular access and continuity of care. 4093-Spoke to Thuan at [facility] for patient transfer to [facility], he states that their transfer nurse will have to call back and get updated clinicals and the hospitalist will need to talk to the ER doctor again.
--- NOTE | 2024-07-08 10:35 | PC.NURSE ---
Qb decreased due to multiple arterial alams. Line flush with NS, still alarming.
--- NOTE | 2024-07-08 10:49 | PC.NURSE ---
BP dropped, head lowered. BP came up, UF still off.
[2024-07-08] MEDS: HEPARIN SOD INJ 1000 UNIT/ML VIAL 10 ML 6300 UNIT INDWELLCAT (11:29)
[2024-07-08] MEDS: INSULIN HUM REGULAR 1 UNIT/0.01 ML (PER UNIT) 15 UNIT SC (17:58)
--- NOTE | 2024-07-08 18:19 | EDNOTE_ITS ---
Emergency Room Addendum Addendum Narrative: 1800: Care assumed from Dr. Potter, the previous shift emergency physician. Past medical, surgical, social and family history reviewed. Vitals and home medications reviewed. I will assume the care of the patient at this time, pending transfer. Please refer to the emergency department record for history and examination from initial visit.? Nursing notes reviewed by me. Vital signs reviewed by me. [facility] medical records reviewed by me. 2016: Case discussed with Dr. Nath, hospitalist at [facility]. Patient accepted with transfer pending bed availabilit. 2134: Patient accepted pending transport at 2300. 2300: EMS has arrived to pick-up the patient. MD Attestation MD Attestation Scribe Attestation: I, Adrianna Morales, am scribing for and in the presence of Dr. Godwin. Provider Notation: Although this document has been carefully reviewed, there may still be some phonetic and other typographical errors. These errors are purely grammatical due to imperfections in the software program and should not be construed in any way to compromise the substance of the patient's medical care during this visit.
[2024-07-08] MEDS: CLINDAMYCIN/NS 600 MG IVPB 600 MG/50 ML BAG 100 MG IV (19:26)
[2024-07-08] MEDS: SODIUM CHLORIDE 0.9% IV (19:56)
[2024-07-08] MEDS: AZTREONAM IV (19:56)
--- NOTE | 2024-07-08 20:20 | PC.NURSE ---
[address] SPEAK[address] DR AT [facility] AT THIS TIME.
--- NOTE | 2024-07-08 21:25 | PC.NURSE ---
Mirna from transfer center updated on [employer] ETA from our facility
--- NOTE | 2024-07-08 22:11 | PC.NURSE ---
REPORT GIVEN TO SHELBY DOUGHERTY AT [facility]. ALL QUESTIONS ASKED AND ANSWERED. REPORT GIVEN TO TRANSPORT TEAM. NO DISTRESS NOTED. PATIENT TRANSFERRED ON 2L O2,
== END 2024-07-08 22:34 | disposition short-term general hospital (02) ==
PROVIDERS: Emergency Medicine; Internal Medicine Nephrology; Emergency Provider Emergency Medicine; PCP Student in an Organized Health Care Education/Training Program
DX: T81.49XA Infection following a procedure, other surgical site, initial encounter (principal); L02.213 Cutaneous abscess of chest wall; E11.22 Type 2 diabetes mellitus with diabetic chronic kidney disease; I13.2 Hypertensive heart and chronic kidney disease with heart failure and with stage 5 chronic kidney disease, or end stage renal disease; I50.9 Heart failure, unspecified; N18.6 End stage renal disease; I25.10 Atherosclerotic heart disease of native coronary artery without angina pectoris
CPT/HCPCS: 36415; 71045; 71250; 71260; 80053; 80074; 81001; 83605; 83615; 83690; 83735; 83880; 84100; 84145; 84484; 85025; 85610; 85730; 86706; 87040; 87070; 87086; 87205; 90935; 93005; 94640; 94644; 96365; 96367; 96372; 96374; 96375; 99285; A4649; J1643; J1815; J2405; J2919; J3490; J7050; Q9967; S0077; G0257; J0457; J0737

== ENCOUNTER 2024-11-05 06:35 | Day surgery (SDC) | payer MEDICARE, MEDICAID, SELFPAY ==
[2024-11-01 17:20] VITALS: BMI 28.1
--- NOTE | 2024-11-04 07:00 | EKG_ITS ---
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
[2024-11-04 11:38] LABS: Basophils # (Auto) 0.1 Thou/mm3 (0.0-0.2); Basophils % (Auto) 1 % (0-2.5); Eosinophils # (Auto) 0.3 Thou/mm3 (0.0-0.5); Eosinophils % (Auto) 3 % (0-10); Hematocrit 29.1 % (41.0-53.0); Hemoglobin 10.3 g/dL (13.5-16.0); Immature Granulocytes Auto 0.03 Thou/mm3 (0.00-0.00); Lymphocytes # (Auto) 1.2 Thou/mm3 (1.0-4.8); Lymphocytes % (Auto) 16 % (10-50); Mean Corpuscular HGB Conc 35.4 g/dl (31.0-37.0); Mean Corpuscular Hemoglobin 27.2 pg (25.0-35.0); Mean Corpuscular Volume 77 fL (80-100); Monocytes # (Auto) 0.8 Thou/mm3 (0.0-0.8); Monocytes % (Auto) 11 % (0-12); Neutrophils # (Auto) 5.2 Thou/mm3 (1.8-7.7); Neutrophils % (Auto) 69 % (37-80); Nucleated Red Blood Cell # 0.00 Thou/mm3 (0.00-0.00); Nucleated Red Blood Cell % 0 /100 WBC (0); Platelet Count 220 Thou/mm3 (140-440); RDW Standard Deviation 49.8 fL (35.1-43.9); Red Blood Count 3.79 Miln/mm3 (4.50-5.90); White Blood Count 7.6 Thou/mm3 (3.8-10.6)
[2024-11-04 11:52] LABS: Anion Gap 9 (7-16); BUN/Creatinine Ratio 7 Ratio (12-20); Blood Urea Nitrogen 46 mg/dL (9-23); Calcium 8.9 mg/dL (8.3-10.6); Carbon Dioxide 32.0 mMol/L (20.0-31.0); Chloride 97 mMol/L (98-107); Creatinine (Component) 6.4 mg/dL (0.6-1.3); Estimated Creatinine Clearance 11.5 mL/min (>60); Glucose 186 mg/dL (74-106); Osmolality,Calculated 292 (275-295); Potassium 5.1 mMol/L (3.4-5.1); Sodium 138 mMol/L (136-145); eGFR 9 See Note
[2024-11-04 12:09] LABS: INR 1.1 (0.9-1.3); Prothrombin Time 11.9 Seconds (9.0-12.2)
[2024-11-04 12:52] LABS: Partial Thromboplastin Time > 139.0 Seconds (22.0-36.0)
[2024-11-04 13:23] LABS: COVID-19 Antigen (In-House) Negative (Negative)
[2024-11-05] VITALS (12 sets, daily range): BP systolic 129–174; BP diastolic 38–59; PULSE 65–94; RESP 12–18; TEMP 36.4–36.8; O2SAT 95–99; BMI 28.6
--- NOTE | 2024-11-05 07:20 | CHAP ---
Patient had requested a Artificial Stone Applicator visit before the procedure, but told me through his family member that he was good and thanked me for coming but did not need a prayer at this time.
[2024-11-05] MEDS: DIAZEPAM 5 MG TABLET PO (07:36)
--- NOTE | 2024-11-05 08:03 | PD.CARDCATH ---
Cardiac Cath Procedure Procedure Narrative Date of the procedure Title of the procedure 1.left heart catheterization 2.left coronary angiogram 3.right coronary angiogram 4.left ventriculogram 5.conscious sedation 6.radiographic interpretation supervision 7.ultrasound guidance for right radial access Procedure This was done in the cardiac lab under current electrocardiographic monitoring Intermittent blood pressure monitoring right radial access obtained using modified Seldinger technique and ultrasound guidance 6 [place] sheath was placed TIG 4 catheter was used for selective engagement of the left coronary artery TIG 4 catheter was used for selective images right coronary artery TIG 4 catheter used for left ventriculogram Hemodynamics Coronary anatomy Conclusion
[2024-11-05 09:07] LABS: Partial Thromboplastin Time 35.4 Seconds (22.0-36.0)
== END 2024-11-05 12:05 | disposition home or self-care (01) ==
PROVIDERS: PCP Physician Assistant; Referring Provider Internal Medicine; Visit Provider Internal Medicine
PROC: (CPT 93458; principal; 2024-11-05 07:45)
DX: R07.89 Other chest pain (principal); M79.606 Pain in leg, unspecified; E78.5 Hyperlipidemia, unspecified; I12.0 Hypertensive chronic kidney disease with stage 5 chronic kidney disease or end stage renal disease; N18.6 End stage renal disease; Z95.0 Presence of cardiac pacemaker; Z98.62 Peripheral vascular angioplasty status; Z79.899 Other long term (current) drug therapy
CPT/HCPCS: 93458; 36415; 80048; 85025; 85610; 85730; 87811; 93005; 99152; 99153; A4216; A4649; C1725; C1760; C1769; C1887; C1894; J0168; J0461; J0583; J1643; J2250; J2312; J2371; J3010; J3490; Q9967; A9270; J2305

== ENCOUNTER 2025-02-06 06:34 | Day surgery (SDC) | payer MEDICARE, MEDICAID, SELFPAY ==
[2025-02-04 12:29] VITALS: BMI 28.1
--- NOTE | 2025-02-05 07:00 | EKG_ITS ---
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
[2025-02-05 13:29] LABS: Basophils # (Auto) 0.1 Thou/mm3 (0.0-0.2); Basophils % (Auto) 1 % (0-2.5); Eosinophils # (Auto) 0.1 Thou/mm3 (0.0-0.5); Eosinophils % (Auto) 1 % (0-10); Hematocrit 41.6 % (41.0-53.0); Hemoglobin 14.4 g/dL (13.5-16.0); Immature Granulocytes Auto 0.02 Thou/mm3 (0.00-0.00); Lymphocytes # (Auto) 1.2 Thou/mm3 (1.0-4.8); Lymphocytes % (Auto) 14 % (10-50); Mean Corpuscular HGB Conc 34.6 g/dl (31.0-37.0); Mean Corpuscular Hemoglobin 27.1 pg (25.0-35.0); Mean Corpuscular Volume 78 fL (80-100); Monocytes # (Auto) 1.0 Thou/mm3 (0.0-0.8); Monocytes % (Auto) 11 % (0-12); Neutrophils # (Auto) 6.5 Thou/mm3 (1.8-7.7); Neutrophils % (Auto) 74 % (37-80); Nucleated Red Blood Cell # 0.00 Thou/mm3 (0.00-0.00); Nucleated Red Blood Cell % 0 /100 WBC (0); Platelet Count 207 Thou/mm3 (140-440); RDW Standard Deviation 53.4 fL (35.1-43.9); Red Blood Count 5.32 Miln/mm3 (4.50-5.90); White Blood Count 8.8 Thou/mm3 (3.8-10.6)
[2025-02-05 13:32] LABS: Anion Gap 12 (7-16); BUN/Creatinine Ratio 7 Ratio (12-20); Blood Urea Nitrogen 49 mg/dL (9-23); Calcium 9.0 mg/dL (8.3-10.6); Carbon Dioxide 31.0 mMol/L (20.0-31.0); Chloride 94 mMol/L (98-107); Creatinine (Component) 7.1 mg/dL (0.6-1.3); Estimated Creatinine Clearance 10.2 mL/min (>60); Glucose 307 mg/dL (74-106); Osmolality,Calculated 298 (275-295); Potassium 5.2 mMol/L (3.4-5.1); Sodium 137 mMol/L (136-145); eGFR 8 See Note
[2025-02-05 13:37] LABS: INR 1.0 (0.9-1.3); Partial Thromboplastin Time 27.7 Seconds (22.0-36.0); Prothrombin Time 10.5 Seconds (9.0-12.2)
[2025-02-06] VITALS (8 sets, daily range): BP systolic 130–178; BP diastolic 63–81; PULSE 63–71; RESP 12–18; TEMP 36.9–37.3; O2SAT 96–100
--- NOTE | 2025-02-06 08:30 | ESOP_ITS ---
Cardiac Cath Procedure Procedure Narrative Procedure date 02/06/2025 Title of the procedure Dual-chamber pacemaker generator change Indication for the procedure This is a 69-year-old gentleman with past medical history of permanent pacemaker placement Hypertension hyperlipidemia Patient pacemaker was checked has reached elective replacement interval Therefore generator change scheduled Procedure This is done in the cardiac lab under current electrocardiographic monitoring intermittent blood pressure monitoring stringent aseptic condition 1% lidocaine anesthesia previously placed pacemaker pocket was incised and the old pacemaker was explanted Explanted pacemaker is [employer] serial #[id number] Subsequently the leads were unscrewed from the previous pacemaker Old leads Guidant serial #[id number] is a right atrial lead Guidant serial #[id number] for the right ventricular lead Atrial threshold 3.4 V at 0.4 ms impedance 496 ohmsVentricular R waves 8.1 mV Ventricle was not capturing Impedance was 551 ohms Both leads were connected to the device the new device [employer] Accolade DR I-S 1 serial #[id number] The pacemaker was placed inside the pocket Subcutaneous tissue was sutured with 2-0 Vicryl Skin was secured with Dermabond Patient tolerated the whole procedure well there was no complication Conclusion Successful generator change
[2025-02-06] MEDS: VANCOMYCIN/NS 500 MG IVPB 100 ML 100 MG IV (08:55)
== END 2025-02-06 10:25 | disposition home or self-care (01) ==
PROVIDERS: PCP Physician Assistant; Referring Provider Internal Medicine; Visit Provider Internal Medicine
PROC: (CPT 33228; principal; 2025-02-06 07:30)
DX: Z45.010 Encounter for checking and testing of cardiac pacemaker pulse generator [battery] (principal); E78.5 Hyperlipidemia, unspecified; E11.22 Type 2 diabetes mellitus with diabetic chronic kidney disease; I12.0 Hypertensive chronic kidney disease with stage 5 chronic kidney disease or end stage renal disease; N18.6 End stage renal disease; Z99.2 Dependence on renal dialysis; M79.606 Pain in leg, unspecified; Z98.62 Peripheral vascular angioplasty status; Z01.810 Encounter for preprocedural cardiovascular examination
CPT/HCPCS: 33228; 36415; 80048; 85025; 85610; 85730; 93005; 99152; 99153; A4649; C1786; J0153; J0168; J0282; J0461; J0689; J2250; J2312; J2371; J3010; J3373; J3490